=== PATIENT | male | born 1980 | race Caucasian/White ===

== ENCOUNTER 2020-02-22 09:50 | Emergency (ER) | payer OTHER, SELFPAY ==
[2020-02-22 09:52] VITALS: BP 122/78; PULSE 68; RESP 16; TEMP 36.6; O2SAT 99; BMI 25.8
--- NOTE | 2020-02-22 10:00 | RAD_ITS ---
STUDY: X-RAY - LEFT CALCANEUS REASON FOR EXAM: Male, 39 years old. Fell of one story roof, pain in foot. TECHNIQUE: 2 view(s) of the calcaneus were obtained. COMPARISON: None. FINDINGS: Acute, comminuted, multi fragmented, slightly impacted fracture of the calcaneus with soft tissue swelling. Joint spaces well-preserved. No other demonstrated fracture RAD/Calcaneus min 2 Views IMPRESSION: Acute, comminuted, multi fragmented, slightly impacted calcaneal fracture with soft tissue swelling Electronically Signed: Cooper Harris MD at 10:41 EDT , Service support ,
--- NOTE | 2020-02-22 10:00 | RAD_ITS ---
STUDY: X-RAY - LEFT HAND REASON FOR EXAM: Male, 39 years old. Fell of one story roof, pain in hand specifically third digit. TECHNIQUE: 3 view(s) of the hand. COMPARISON: None. FINDINGS: Normal radiocarpal articulation. Normal distal radioulnar joint. Normal visualized carpal bones. Normal carpal articulations Normal carpometacarpal articulation of the thumb. Normal second through fifth carpometacarpal joints. Normal metacarpi. Normal metacarpophalangeal joint of the thumb. Normal interphalangeal joint of the thumb. Normal proximal and distal phalanges of the thumb. Normal metacarpophalangeal joints of the second through fifth fingers. Normal proximal and distal interphalangeal joints of the second through fifth fingers. Normal phalanges of the second through fifth fingers. The soft tissue structures are unremarkable. RAD/Hand Min 3 Views IMPRESSION: Normal x-ray examination of the hand. Electronically Signed: Cooper Harris MD at 10:42 EDT , Service support ,
--- NOTE | 2020-02-22 10:00 | RAD_ITS ---
STUDY: X-RAY - RIGHT FOOT CLINICAL: Male, 39 years old. Fell of one story roof, pain in foot. TECHNIQUE: 3 view(s) of the foot. COMPARISON: None. FINDINGS: Normal talus and tarsal bones. Calcaneal spurs Normal visualized subtalar, talonavicular, calcaneocuboid, tarsal and tarsometatarsal articulations. Normal metatarsi. Normal metatarsophalangeal joint of the great toe. Normal tibial and fibular sesamoid bones. Normal interphalangeal joint of the great toe. Normal phalanges of the great toe. Normal second through fifth metatarsophalangeal joints. Normal interphalangeal joints and phalanges of the lesser toes. The soft tissue structures are unremarkable. RAD/Foot min 3 Views IMPRESSION: Calcaneal spurs, otherwise unremarkable right foot Electronically Signed: Cooper Harris MD at 10:42 EDT , Service support ,
--- NOTE | 2020-02-22 10:00 | RAD_ITS ---
STUDY: X-RAY - RIGHT ANKLE REASON FOR EXAM: Male, 39 years old. Fell of one story roof, pain in ankle. TECHNIQUE: 3 view(s) of the ankle. COMPARISON: None. FINDINGS: Normal visualized distal tibia and fibula. Normal medial and lateral malleoli. Normal tibiotalar articulation and ankle mortise. Normal visualized talus. Calcaneal spurs The visualized subtalar, talonavicular, calcaneocuboid and tarsal articulations are normal. The soft tissue structures are unremarkable. RAD/Ankle min 3 Views IMPRESSION: Calcaneal spurs, no demonstrated fracture or suspicious osseous lesion Electronically Signed: Cooper Harris MD at 10:38 EDT , Service support ,
--- NOTE | 2020-02-22 10:00 | RAD_ITS ---
STUDY: X-RAY - LEFT ANKLE REASON FOR EXAM: Male, 39 years old. Fell of one story roof, pain in ankle. TECHNIQUE: 3 view(s) of the ankle. COMPARISON: None. FINDINGS: Normal visualized distal tibia and fibula. Normal medial and lateral malleoli. Normal tibiotalar articulation and ankle mortise. Normal visualized talus. Calcaneal spurs The visualized subtalar, talonavicular, calcaneocuboid and tarsal articulations are normal. The soft tissue structures are unremarkable. RAD/Ankle min 3 Views IMPRESSION: Calcaneal spurs, otherwise unremarkable left ankle Electronically Signed: Cooper Harris MD at 10:38 EDT , Service support ,
--- NOTE | 2020-02-22 10:00 | RAD_ITS ---
STUDY: X-RAY - LEFT FOOT CLINICAL: Male, 39 years old. Fell of one story roof, pain in foot. TECHNIQUE: 3 view(s) of the foot. COMPARISON: None. FINDINGS: Normal talus and tarsal bones. Acute, comminuted, multi fragmented calcaneal fracture with soft tissue swelling Normal visualized subtalar, talonavicular, calcaneocuboid, tarsal and tarsometatarsal articulations. Normal metatarsi. Normal metatarsophalangeal joint of the great toe. Normal tibial and fibular sesamoid bones. Normal interphalangeal joint of the great toe. Normal phalanges of the great toe, there has been previous removal of the distal aspect of the distal phalanx of the great toe and of the middle and distal phalanges of the second toe. Normal second through fifth metatarsophalangeal joints. Normal interphalangeal joints and phalanges of the lesser toes. The soft tissue structures are unremarkable. RAD/Foot min 3 Views IMPRESSION: Acute comminuted multi fragmented slightly impacted calcaneal fracture with soft tissue swelling No other demonstrated fracture or joint space abnormality Electronically Signed: Cooper Harris MD at 10:40 EDT , Service support ,
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
[2020-02-22] MEDS: Ondansetron ODT 4 MG Tablet PO (10:06)
[2020-02-22] MEDS: HYDROcodone Bitartrate/Apap 5/325 Tablet PO (10:06)
--- NOTE | 2020-02-22 10:13 | ED.RN ---
PER ANA ESPINAL, LO[employer] ADVISER [employer] [facility], DOES NOT REQUIRE A DRUG TEST.
--- NOTE | 2020-02-22 10:42 | CT_ITS ---
STUDY: CT LEFT FOOT REASON FOR EXAM: Male, 39 years old. LT CALCANEAL FX/FALL FROM ROOF RADIATION DOSAGE (If Supplied By Facility): CTDIvol = ( 15.35 ) mGy, DLP = ( 319.22 ) mGycm TECHNIQUE: Thin section transaxial imaging of the foot was obtained, with sagittal and coronal reconstructed images. Individualized dose optimization techniques were used for this CT. COMPARISON: X-ray dated February 22, 2020. FINDINGS: Acute comminuted calcaneal fracture involving the anterior subtalar, posterior subtalar and calcaneocuboid joints. Fracture maximally depressed at the posterior subtalar joint measuring approximately 4 mm. No acute dislocation. No acute cortical destruction. Distal tibia intact. Distal fibula intact. Talus intact. Navicular intact. Cuboid intact. Cuneiforms intact. First through fifth metatarsals intact. Chronic truncated first distal phalanx. Chronic second toe amputation. Third through fifth digits intact. No significant osseous degenerative features. Hindfoot soft tissue swelling. Ankle joint effusion. CT/Extremity Lower without Contra IMPRESSION: Acute comminuted intra-articular left calcaneal fracture Chronic first and second digit surgery Hindfoot soft tissue swelling with ankle joint effusion Electronically Signed: Price Hyman DO at 11:38 EDT Tel , Service support ,
[2020-02-22 12:33] VITALS: BP 128/74; PULSE 71; RESP 16; O2SAT 99
== END 2020-02-22 12:40 | disposition home or self-care (01) ==
PROVIDERS: Emergency Provider Emergency Medicine
DX: S92.002A Unspecified fracture of left calcaneus, initial encounter for closed fracture (principal); S63.253A Unspecified dislocation of left middle finger, initial encounter; F17.200 Nicotine dependence, unspecified, uncomplicated; W13.2XXA Fall from, out of or through roof, initial encounter; Y93.89 Activity, other specified; Y92.89 Other specified places as the place of occurrence of the external cause; Y99.0 Civilian activity done for income or pay
CPT/HCPCS: 29515; 73130; 73610; 73630; 73650; 73700; 99285

== ENCOUNTER 2020-02-29 09:28 | Day surgery (SDC) | payer OTHER, SELFPAY ==
--- NOTE | 2020-02-26 16:13 | EKG12_ITS ---
Test Reason : PREOP Blood Pressure : / mmHG Vent. Rate : 070 BPM Atrial Rate : 070 BPM P-R Int : 126 ms QRS Dur : 078 ms QT Int : 372 ms P-R-T Axes : 046 016 015 degrees QTc Int : 401 ms Normal sinus rhythm Normal ECG Confirmed by YODIT GIPSON ([id number]), subeditor NILTON SMILEY ([id number]) on 03/04/2020 2:40:51 PM Referred By: Ulises Carbone Confirmed By:YODIT GIPSON
[2020-02-26 17:13] LABS: Absolute Lymphocyte Count 2.27 X10^3/uL (0.83-4.51); Basophil# 0.03 X10^3/uL; Basophil% 0.3 % (0-1); Eosinophil# 0.07 X10^3/uL; Eosinophils% 0.8 % (0-5); Hematocrit 43.2 % (40-54); Hemoglobin 14.3 g/dL (13.0-16.5); Lymphocyte # 2.27 X10^3/ul (4.0); Lymphocyte % 25.1 % (19-41); Mean Corp Hgb Conc 33.1 g/dL (32-36); Mean Corpuscular Hgb 28.5 pg (27.0-32.0); Mean Corpuscular Volume 86.1 fL (80-94); Mean Platelet Vol. 10.3 fl (6.2-12.0); Monocyte# 0.66 X10^3/uL; Monocyte% 7.3 % (0-10); NRBC Flagged by Analyzer 0 % (0-5); Neutrophil # 6.01 X10^3/uL (2.7-7.7); Neutrophil % 66.3 % (47-70); Platelet Count 268 K/mm3 (150-450); RBC Distribution Width SD 37.4 fl (35.1-43.9); Red Blood Count 5.02 M/mm3 (4.6-6.2); White Blood Count 9.1 K/mm3 (4.4-11.0)
[2020-02-26 17:35] LABS: ALB/GLOB Ratio 0.9 RATIO (0.9-2.4); AST(SGOT) 14 U/L (15-37); Alanine Aminotransfer ALT/SGPT 30 U/L (16-61); Albumin, Serum 3.9 g/dL (3.2-5.0); Alkaline Phosphatase 68 U/L (45-117); Anion Gap 3 (5-15); BUN 17 mg/dL (7-18); BUN/Creat Ratio 17.8 RATIO (10-20); Chloride 103 mmol/L (98-107); Creatinine, Serum 0.96 mg/dL (0.70-1.30); EST Glomerular Filtration Rate 94 mL/min (>60); Est Glom Filt Rate - Afr Amer 114 mL/min (>60); Globulin 4.3 g/dL (2.2-4.2); Glucose 88 mg/dL (74-106); Potassium 3.8 mmol/L (3.5-5.1); Protein, Total 8.2 g/dL (6.4-8.2); Sodium Level 137 mmol/L (136-145)
[2020-02-29] VITALS (7 sets, daily range): BP systolic 121–147; BP diastolic 63–91; PULSE 61–90; RESP 16–18; TEMP 36.2–36.8; O2SAT 96–99; BMI 24.5
--- NOTE | 2020-02-29 07:00 | RAD_ITS ---
STUDY: X-RAY - LEFT CALCANEUS REASON FOR EXAM: Male, 39 years old. ORIF CALCANEAL FRACTURE WITH SUBTALAR JOINT ARTHRODESIS FUSION TECHNIQUE: 5 intraoperative view(s) of the calcaneus were obtained. 4 minutes 40 seconds fluoroscopy time. COMPARISON: 02-22-20. FINDINGS: 2 surgical screws are seen passing along the length of the posterior calcaneus and into the abdominal talus. Calcaneal contour appears normal. Correlate with procedure note. Electronically Signed: Jesse Chua MD at 18:53 EDT , Service support , RAD/Calcaneus min 2 Views
[2020-02-29] MEDS: Lactated Ringers 1,000 ML 100 ML IV (10:15)
[2020-02-29] MEDS: Cefazolin 2 GM in 0.9% Normal Saline 100 ML IV (11:09)
--- NOTE | 2020-02-29 13:48 | PCM.DC.POD ---
Discharge Diet: Light diet - advance as tolerated Discharge Activity: May not drive while taking narcotic pain medications., Use Crutches Weight Bearing Status: No weight bearing - No weightbearing left foot Keep extremity elevated above heart level: Left Leg - Keep left foot elevated (w/ pressure off of heel) at least 50 minutes of every hour Call your doctor if your incision/area has: Continuous Slow Oozing, Sudden Increased Bleeding, Foul Smelling Discharge Call your doctor if you observe: Fever of 101 or Higher, Shortness of breath, Chest pain, Calf discomfort, Uncontrolled pain Cleanse incision/area with: Do not get Incision Wet, Keep Dressing Clean & Dry Allergies/Adverse Reactions: Allergies No Known Allergies Allergy (Verified 02/29/20 10:01) Medications to take at Discharge Hydrocodone/Acetaminophen [[place] 5-325 Tablet] 1 ea PO Q6H PRN 02/25/20 Amoxicillin/Potassium Clav [Augmentin 500-125 Tablet] 1 ea PO Q12H #14 tab 02/29/20 Rivaroxaban [Xarelto] 10 mg PO DAILY #10 tab 02/29/20 The following prescriptions were given: Amoxicillin/Potassium Clav [Augmentin 500-125 Tablet] 1 ea PO Q12H #14 tab Prescription Printed Rivaroxaban [Xarelto] 10 mg PO DAILY #10 tab Prescription Printed Orders to be completed after discharge: CORONAVIRUS 19, CATHLEEN SCREEN Time Frame: 02/26/20, Facility: [facility], Location: Laboratory Primary Care Physician: Care Physician,No Primary [Primary Care Provider] - Test Results: Test results from this visit will be discussed in further detail at your follow-up appointment, if applicable. Please Follow Up With: Ulises Carbone DPM When: 1 week, sooner if needed
--- NOTE | 2020-02-29 13:51 | OP.PCM_ITS ---
Report of Operation Date of Procedure: 02/29/20 Pre-Operative Diagnosis: Calcaneal fracture, left Post-Operative Diagnosis: Same Surgery/Procedure Performed:: Primary subtalar joint arthrodesis, left butter liquefier: yes - Dr. Becki Forde Type of Anesthesia:: General Specimen's removed: None Estimated Blood Loss (mL): 20mL Description of Procedure: Indications: This is a 39 year old gentleman with left calcaneal fracture 1 week ago, fracture is significantly comminuted and intra-articular. We discussed the options and he would like to proceed with primary arthrodesis of the subtalar joint. This was discussed with him in great detail, we have discussed the possible benefits vs risks and potential complications. We have discussed and reviewed all alternative options. We reviewed and discussed the typical healing time and post operative course. All goals and expectations were discussed and reviewed. He expressed understanding and agreement, he was able to repeat these back. All of his questions were answered. The consent forms were reviewed with him and he freely signed them. No guarantees were given nor implied. Also advised tobacco cessation, advised increased risks of nonhealing, infection and other problems with continued tobacco use. Operative Procedure: The patient was brought back into the operating room and was placed on the operating table in the supine position. Patient was carefully secured to the operating room table with a safety belt around patient's waist. A time out was performed and the patient was properly identified and the surgical plan was confirmed. The patient received 2g of intravenous Cefazolin for antibiotic prophylaxis. The patient received general anesthesia per the anesthesiologist. A well padded pneumatic tourniquet was applied around the left thigh. The left lower extremity was scrubbed, prepped, and draped using strict aseptic technique. Attention was further directed to the left foot and ankle. Attention was directed to the lateral column were an incision was made overlying the sinus tarsi, from the distal fibula directed toward the 4th metatarsal base. This was done using a 15 blade. Careful blunt dissection was completed down the extensor digitorum brevis muscle belly, which was visualized and was partially reflected superiorly, the lateral capsule and the interosseous ligaments of the subtalar joint were released. The left foot was elevated for 3 minutes and the left thigh pneumatic tourniquet was inflated to 300mmHg. The sinus tarsi and subtalar joint (posterior, medial and anterior subtalar joint) were visualized. The calcaneal fracture was noted, there was multiple fragments and was intra articular. The cartilages was fractured in multiple places. The subtalar joint was debrided, and all remaining cartilage from the subtalar joint surfaces was removed down to bleeding bone. This was done with a curette and a small bur being sure not to cause osteonecrosis. The site was flushed out with copious amounts of normal saline solution. The joint surfaces were fenestrated to aid fusion using an osteotome as well as a small drill. The heel and subtalar joint were placed in neutral position / vertical position and two 7.0 cannulated Arthrex screws were placed across the prepped subtalar joint, this was done using rigid open reduction internal fixation technique. A small amount of cancellous bone chips were placed at the fusion site to help maintain height and to aid fusion. There was noted to be good bone to bone compression and contact across the subtalar joint with the prepped subtalar joint surfaces in good alignment. The subtalar joint was rigid and stable. The screws were in good position. This was confirmed with intra-operative fluoroscopy. The surgical site was flushed out with copious amounts of normal saline solution. The deep fascia layer using 2-0 Vicryl, the subcutaneous tissue layers was reapproximated 4-0 Vicryl, and the skin was reapp roximated using 3-0 Nylon. The pneumatic tourniquet was deflated, and there was immediate return of warmth and perfusion to the foot and to all toes on the foot with normal temperature gradient and CFT < 2 seconds to all toes. Total tourniquet was was 117 minutes. 19mL of 0.5% Bupivacaine was given as a local block around the surgical site for further post op pain control. Hemostasis was achieved. A dressing was applied which consisted of Betadine soaked adaptic, 4x4 gauze, Kerlix and trenton bandage, and a well padded below knee posterior splint with heel offloaded. The patient tolerated the above operative procedure well at the anesthesia well with no complication. The patient was transported to the recovery room with vital signs stable and in good condition. Patient received a left popliteal block in recovery by the anesthesia team. Post operative orders were placed. Post operative instructions were reviewed. No weightbearing to the left foot, keep foot elevated for at least 50 minutes of every hour, keep dressing clean, dry and intact. Prescription for Xarelto 10mg once a day for DVT prophylaxis, and also Augmentin 500mg PO q 12 hours for antibiotic prophylaxis. Patient already has [place] for pain control at home. Post operative xrays left calcaneus were obtained and reviewed - confirmed subtalar joint arthrodesis with screws intact and in good position. No acute findings otherwise. Patient to follow up with me in 1 week at office, sooner if needed. Grafts/Implants Used: 2 x 7.0mm Arthrex cannulated screws - Complications None
--- NOTE | 2020-02-29 14:03 | RAD_ITS ---
STUDY: X-RAY - LEFT CALCANEUS REASON FOR EXAM: Male, 39 years old. POST OP PORTABLE LEFT HEEL. TECHNIQUE: 3 view(s) of the calcaneus were obtained. COMPARISON: Intraoperative views of the same day. FINDINGS: Cast obscures bone detail. 2. Screws are seen passing through the posterior calcaneus, the posterior talocalcaneal joint, and into the talus. Fractures in near anatomic alignment and position. BOHLER''s angle is maintained. RAD/Calcaneus min 2 Views IMPRESSION: Status post surgical ankylosis through the calcaneus and into the talus. Fractures in near anatomic alignment and position. Electronically Signed: Jesse Chua MD at 19:07 EDT , Service support ,
[2020-02-29 15:53] LABS: International Normalized Ratio 1.1; Prothrombin Time (Protime)PT. 14.1 SECONDS (11.7-14.9)
[2020-02-29 15:54] LABS: Partial Thromboplast Time 27.1 Seconds (24.1-36.2)
--- NOTE | 2020-02-29 16:22 | SUR.PHASEII ---
pt and female sig other instructed verbally and in writing to watch for signs and symptoms of blood clot. Jose information given entitled Understanding Pulmonary Embolism which includes the s/s to watch for.
== END 2020-02-29 15:27 | disposition home or self-care (01) ==
LOC: SDC 09:31 → AC 09:31
PROVIDERS: Anesthesiology; Referring Provider Podiatrist; Visit Provider Podiatrist
PROC: (CPT 28725; principal; 2020-02-29 10:40)
DX: S92.062A Displaced intraarticular fracture of left calcaneus, initial encounter for closed fracture (principal); F17.200 Nicotine dependence, unspecified, uncomplicated; Z11.59 Encounter for screening for other viral diseases; X58.XXXA Exposure to other specified factors, initial encounter; Y93.89 Activity, other specified; Y92.89 Other specified places as the place of occurrence of the external cause; Y99.8 Other external cause status
CPT/HCPCS: 28725; 36415; 73650; 76000; 80053; 85025; 85610; 85730; 87635; 93005; 94799; C1713; J7120; J2405; U0003

== ENCOUNTER 2020-08-15 14:30 | Outpatient (RCR) | payer OTHER, SELFPAY ==
[2020-02-29 10:02] VITALS: BMI 24.5
--- NOTE | 2020-05-16 17:26 | HP.PTEVAL_ITS ---
Patient's Visit Information OFELIA KELLER is a 40 year old M referred to Physical Therapy by Dr. Ulises Carbone DPM with a diagnosis of Subtalar Arthrodesis due to severe calcaneal fracture. Date of Evaluation: 05/16/20 Physical Therapist: Verna Worthy DPT - Visit Plan Frequency: 3x /Week Duration: 4 Weeks Plan: Boot until at least 05/25/2020 per MD. Focus on LE ROM,strength and flexibility - Subjective Fell off the roof February 21 fractured calcaneus- surgery 02/29/[address] Carbone. Was on crutches- and a splint when he was outside of his house- non weight bearing. Was put in a boot and full weight on it for about 2 weeks. Go es back to [place] in about 2 weeks. Does not really have pain in the ankle/foot when resting. But when he walks he has lateral ankle pain when he walks and if it gets bad its in the back and lower foot. Takes about a half hour for the pain to go back to zero. Does not sleep in the boot- does not put any weight on it unless he has the boot on. Best: 0/10 Eases: getting off of it agg: being up on it, weight bearing in the boot. Worst: 2/10 Describes the pain as stabbing- no N/T at this time. 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 PMHx: none- is missing his second toe and a piece of his 1st toe Meds: cream by Dr. Carbone for athletes foot. Sleep: not disturbed. Very active prior to the injury- plays baksetball with his kids and his job is demanding. - Objective Posture: Fh, RS. Gait: antalgic- Cam walker on the left LE- no WB outside of boot- decreased stance and poor wesley/toe pattern. Observation: incision healing well no s/s of infection. ROM: DF: neutral, PF: 30 degrees, Inver: 10 degrees Ever: 10 degrees, Knee/Hip: WNl. Strength: Ankle: 4+/5 in available range, knee: 5/5 Hip: 4/5 Core: fair. Flex: HS: moderate Gastroc; severe. Palpatoin: tender along plantar surface of the foot along the calcaneus and on the lateral aspect of the foot to the metatarsals- medial and lateral malleolus. No WB obje ctive measures - Goals Goal 1:: Patient will be I with HEP and progression Goal Time Frame: 4-6 Weeks Goal 2:: Patinet will ambulate >300 feet with a normalized gait pattern Goal Time Frame: 4-6 Weeks Goal 3:: Patient will SLS for 30 sec without LOB Goal Time Frame: 4-6 Weeks Goal 4:: Patient will return to work related tasks without pain for 1 week - Rehabilitation Potential Physical Therapy Diagnosis: Patient presents with hypomobility- he has decreased ROM,strength, flex and muscular endurance s/p subtalar arthrodesis leading to abnormal gait Rehabilitation Potential: Good - Anticipated Interventions Patient/Client Instruction: Educate patient on: Benefits of Fitness Program Therapeutic Exercise to Include: Strength training, Endurance training, Balance training, Coordination, Agility training, Body mechanics, Postural training, Flexibilty training, Gait and locomotor training, Neuromotor development, Passive ROM, Active ROM, Dynamic Lumbar Stabilization, Scapular Strength/Stabilization For the Purpose of:: To improve muscle performance and motor function TENS: Yes Cryotherapy (ice pack, ice massage): Yes Thermo therapy (hot pack): Yes Ultrasound (thermal/non thermal): No Vasopneumatic device: Yes For the Purpose of:: To decrease pain, To decrease swelling/inflammation Thank you for the opportunity to evaluate your patient. For Medicare and Medicare HMO plans, please review the plan of care and approve it. It will need to be FAXED BACK to us at [phone] for Medicare purposes. For Medicare only, by signing this I certify the plan of care. Please let me know if there are questions or concerns regarding this plan of care. Physician Signature: Date:
--- NOTE | 2020-06-13 10:19 | HP.PTREVAL_ITS ---
Dr. Ulises Carbone, DPM, It has been my pleasure to treat OFELIA KELLER over the last 6 visits for Subtalar Arthrodesis due to severe calcaneal fracture. Please see the progress note below for an update on the physical therapy plan of care! Subjective: He is no longer wear the boot or sock- he wears his orthotics. He is not back to work- he does not have a return to work date. Goes back to [employer] Jun 28. The pain comes and goes. Some days are better than others. He still has problems with the ankle area and the heel is tender. Wears crocks in the s hower which is helpful. He is working on standing on both feet without shoes yesterday for the first time. Most painful part is currently where the scars (Worst: 2/10 Best: 0/10). No night splint. Objective/Function: Posture: Fh, RS. Gait: slightl antalgic- tennis shoe without compression stocking- decreased stance and poor wesley/toe pattern on the left. Observation: incision healing well no s/s of infection and not tender to light touch. Significant muscle atrophy in the right calf. ROM: DF: 5 degrees, PF: 60 degrees, Inver: 10 degrees Ever: 20 degrees, Knee/Hip: WNL. Strength: Ankle: 4+/5 in available range, knee: 5/5 Hip: 4/5 Core: fair. Flex: HS: moderate Gastroc; severe. Palpatoin: tender along plantar surface of the foot along the calcaneus and on the lateral aspect of the foot to the metatarsals Girth: Figure 8: 54 cm. HR/TR: able with UE a for balance, SLS: 5 sec then LOB Plan Plan: Boot until at least 05/25/2020 per MD. Focus on LE ROM,strength and flexibility. 06/13: Continue with POC as per C9- when MD sends- focus on proprioception and functional mobility Goals Goal 1:: Patient will be I with HEP and progression Goal Time Frame: 4-6 Weeks Goal Progress: Progressing Goal 2:: Patinet will ambulate >300 feet with a normalized gait pattern Goal Time Frame: 4-6 Weeks Goal Progress: Progressing Goal 3:: Patient will SLS for 30 sec without LOB Goal Time Frame: 4-6 Weeks Goal Progress: Progressing Goal 4:: Patient will return to work related tasks without pain for 1 week Goal Progress: Progressing Anticipated Interventions Patient/Client Instruction: Educate patient on: Benefits of Fitness Program Therapeutic Exercise to Include: Strength training, Endurance training, Balance training, Coordination, Agility training, Body mechanics, Postural training, Flexibilty training, Gait and locomotor training, Neuromotor development, Passive ROM, Active ROM, Dynamic Lumbar Stabilization, Scapular Strength/Stabilization For the Purpose of:: To improve muscle performance and motor function TENS: Yes Cryotherapy (ice pack, ice massage): Yes Thermo therapy (hot pack): Yes Ultrasound (thermal/non thermal): No Vasopneumatic device: Yes For the Purpose of:: To decrease pain, To decrease swelling/inflammation Please do not hesitate to contact me at [phone] by phone or if you have questions or concerns regarding this new plan of care! Sincerely, Verna Worthy DPT
--- NOTE | 2020-08-15 15:06 | HP.PTREVAL ---
Dr. Ulises Carbone, DPM, It has been my pleasure to treat OFELIA KELLER over the last 14 visits for Subtalar Arthrodesis due to severe calcaneal fracture. Please see the progress note below for an update on the physical therapy plan of care! 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 He feels that its better- he still has a little limp- but he has very little pain. No pain with manuel- but his motion is not 100% back to normal on the roof. Can't walk all the way up the slant due to decreased DF or across inversion. Doesn't feel he needs PT anymore. Patient feels that he is 85% of previous function. Objective/Function: Posture: Fh, RS. Gait: slightly antalgic- tennis shoe- decreased stance and poor wesley/toe pattern on the left. Observation: incision healing well no s/s of infection and not tender to light touch. Significant muscle atrophy in the right calf. ROM: DF: 10 degrees, PF: 50 degrees, Inver: 10 degrees Ever: 30 degrees, Knee/Hip: WNL. Strength: Ankle: 5/5 in available range, knee: 5/5 Hip: 4/5 Core: fair. Flex: HS: moderate Gastroc; moderate. HR/TR: able with UE a for balance bilateral LE- single leg unable to perform HR or eccentrics, SLS: 7 sec then LOB. Plan Plan: Focus on LE ROM, strength and flexibility. 06/13: Continue with POC as per C9- focus on proprioception and functional mobility. 07/20: Continue with POC as per C9- expires 08/16/2019. 08/15/2020: Continue with current POC if patient aquires new C9 from MD 08/24/2020. Encouraged patient to focus on HEP of SLS and HR/TR both concentric and eccentric and to be cautious on the roof. Goals Goal 1:: Patient will be I with HEP and progression Goal Time Frame: 4-6 Weeks Goal Progress: Progressing Goal 2:: Patinet will ambulate >300 feet with a normalized gait pattern Goal Time Frame: 4-6 Weeks Goal Progress: Progressing Goal 3:: Patient will SLS for 30 sec without LOB Goal Time Frame: 4-6 Weeks Goal Progress: Progressing Goal 4:: Patient will return to work related tasks without pain for 1 week Goal Progress: Progressing Anticipated Interventions Patient/Client Instruction: Educate patient on: Benefits of Fitness Program Therapeutic Exercise to Include: Strength training, Endurance training, Balance training, Coordination, Agility training, Body mechanics, Postural training, Flexibilty training, Gait and locomotor training, Neuromotor development, Passive ROM, Active ROM, Dynamic Lumbar Stabilization, Scapular Strength/Stabilization For the Purpose of:: To improve muscle performance and motor function TENS: Yes Cryotherapy (ice pack, ice massage): Yes Thermo therapy (hot pack): Yes Ultrasound (thermal/non thermal): No Vasopneumatic device: Yes For the Purpose of:: To decrease pain, To decrease swelling/inflammation Please do not hesitate to contact me at [phone] by phone or if you have questions or concerns regarding this new plan of care! Sincerely, Verna Worthy DPT
--- NOTE | 2020-09-07 13:17 | HP.PTDCSUM ---
It has been my pleasure to treat OFELIA KELLER referred by Dr. Ulises Carbone, DPYeimi, with the diagnosis of Subtalar Arthrodesis due to severe calcaneal fracture for a total of 14 visit(s). Discharge Date: Please see the following information for a summary of their discharge status. 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 He feels that its better- he still has a little limp- but he has very little pain. No pain with manuel- but his motion is not 100% back to normal on the roof. Can't walk all the way up the slant due to decreased DF or across inversion. Doesn't feel he needs PT anymore. Patient feels that he is 85% of previous function. Left Ankle Pain Intensity (Out of 10): 4 % Improvement: 85 Objective/Function: Posture: Fh, RS. Gait: slightly antalgic- tennis shoe- decreased stance and poor wesley/toe pattern on the left. Observation: incision healing well no s/s of infection and not tender to light touch. Significant muscle atrophy in the right calf. ROM: DF: 10 degrees, PF: 50 degrees, Inver: 10 degrees Ever: 30 degrees, Knee/Hip: WNL. Strength: Ankle: 5/5 in available range, knee: 5/5 Hip: 4/5 Core: fair. Flex: HS: moderate Gastroc; moderate. HR/TR: able with UE a for balance bilateral LE- single leg unable to perform HR or eccentrics, SLS: 7 sec then LOB. Goal 1:: Patient will be I with HEP and progression Goal Progress: Progressing Goal 2:: Laceynet will ambulate >300 feet with a normalized gait pattern Goal Progress: Progressing Goal 3:: Patient will SLS for 30 sec without LOB Goal Progress: Progressing Goal 4:: Patient will return to work related tasks without pain for 1 week Goal Progress: Progressing Plan: Focus on LE ROM, strength and flexibility. 06/13: Continue with POC as per C9- focus on proprioception and functional mobility. 07/20: Continue with POC as per C9- expires 08/16/2019. 08/15/2020: Continue with current POC if patient aquires new C9 from [place] 08/24/2020. Encouraged patient to focus on HEP of SLS and HR/TR both concentric and eccentric and to be cautious on the roof. If there are questions or concerns regarding this patient's physical therapy, please feel free to call me at [phone]. Thank you for the referral of this patient. Sincerely, MONTY MeadowsT
== END 2020-08-15 19:00 | disposition home or self-care (01) ==
LOC: PT 14:30
PROVIDERS: Referring Provider Podiatrist; Visit Provider Podiatrist
DX: Z47.89 Encounter for other orthopedic aftercare (principal)
CPT/HCPCS: 97110; 97162; 97164

== ENCOUNTER 2024-06-10 07:28 | Emergency (ER) | payer SELFPAY ==
[2024-06-10 07:28] VITALS: BP 128/79; PULSE 79; RESP 16; TEMP 36.6; O2SAT 100; BMI 27.1
== END 2024-06-10 09:36 | disposition home or self-care (01) ==
PROVIDERS: Emergency Provider Emergency Medicine; Visit Provider Emergency Medicine
DX: M25.521 Pain in right elbow (principal); F17.210 Nicotine dependence, cigarettes, uncomplicated
CPT/HCPCS: 73080; 99282

== ENCOUNTER 2025-07-15 13:00 | Outpatient (RCR) | payer OTHER, SELFPAY ==
--- NOTE | 2025-06-16 13:36 | HP.PTEVAL_ITS ---
Patient's Visit Information Visit Information Visit Information: OFELIA KELLER is a 45 year old M referred to Physical Therapy by MIGUEL ANGEL HESS with a diagnosis of SPRAIN OF R SHLD - DOI 05/17/25. Date of Evaluation: 06/16/25 Physical Therapist: Kary Cherry PT, Cert MDT Visit Plan Frequency: 3x /Week Duration: 4 Weeks Plan: R SHLD MANUAL THERAPY INCLUDING JOINT MOBILIZATION AND PROM TO HELP DECREASE PAIN AND RESTORE ROM. R SHLD MODALITIES NEEDED TO DECREASE PAIN AND SWELLING AND HELP PROMOTE HEALING. A/AA/PROM R SHLD ALL PLANES TO HELP RESTORE ROM. POSTURE CORRECTON TO PROMOTE GOOD ALIGNMENT DURING HEALING. ONCE ROM IS RESTORED BEGIN LIGHT RESISTANCE TRAINING TO RESTORE FULL STRENGTH OF ROTATOR CUFF. PROPRIOCEPTIVE RE-TRAINING. 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 STATES HE IS USING R ARM SOME AT WORK. THIS PATIENT PRESENTS TO PT WITH C/O R SHLD PAIN. STATES HE WAS PICKING UP A COMPRESSOR OUT OF A TRUCK AT WORK WITH ANOTHER DEBBIE 05/17/25 AND FELT PAIN/PRESSURE/STABBING IN HIS R SHLD. PATIENT REPORTS HE HAD AN MRI AT [facility] AND WAS TOLD THAT HE HAS A TEAR AND HAS BEEN REFERRED TO DR. DEREK YANES WAS CONSULT PENDING 07/05/25. Present symptoms: R SHLD PAIN AND FEELS "HEAVY". DENIES UE NUMBNESS AND TINGLING. Getting Better, Getting Worse or Staying the Same: GETTING BETTER WITH REST FROM WORK Pain Scale: Worst - 6/10 Least - 0/10 Currently: 0/10 Worse: REACHING ACROSS BODY, BRINGING ARM UP WITH ELBOW BENT. 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 LAYING ON IT. Better: REST ARM ON LEG OR ARM REST, NOT REACHING. ANTI-INFLAMMATORY PRESCRIPTION. Disturbed sleep: YES Previous history/Previous treatment: UNREMARKABLE This episode: ANTI-INFLAMMATORY PRESCRIPTION FROM URGENT CARE. Dizziness: NO Tinnitus: NO Nausea: NO Shortness of Breath: NO Difficulty Swallowing: NO PMH/Recent major surgery: UNREMARKABLE Objective Objective: Sitting Posture/Standing Posture: FAIR. FH. ROUNDED SHLD'S. Active Correction of posture: PATIENT ABLE TO CORRECT BUT DOES NOT MAINTAIN. Other Observations: INDEP GAIT AND TRANSFERS. Sensory deficit: KEMAR UE LIGHT TOUCH SENSATION GROSSLY INTACT AND SYMMETRICAL ROM deficit: STANDING AROM: R SHLD FLEX 126 DEG. ABD 136 DEG. SUPINE PROM R SHLD FLEX 139 DEG, ABD 60 DEG, ER 43 DEG, IR 65 (ROTATION MEASURED WITH 60 DEG ABD). FULL ACTIVE ROM R ELBOW, FOREARM, WRIST AND HAND. ERP AND GUARDING WITH PROM TESTING R SHLD ALL PLANES ESPECIALLY SUPINE ABD. 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 L UE 5/5 WITH L HAT BRIM AND CROWN LAMINATING OPERATOR STRENGTH 60 LBS. Cervical Mvmt Loss: CERVICAL ROM WITHIN WFL ALL PLANES AND PATIENT DENIES INCREASED R SHLD PAIN WITH CERVICAL ROM TESTING. Postural strength: FAIR Balance/Special Test Scores Quick DASH Score: 35.0000 Goals Goal 1:: RESTORE FULL PAINFREE R UE ROM EQUAL TO L UE. Goal Time Frame: 4-6 Weeks Goal 2:: INCREASE R UE STRENGTH BY AT LEAST ONE MUSCLE GRADE THROUGHOUT Goal Time Frame: 4-6 Weeks Goal 3:: PATIENT WILL SCORE AT LEAST 10 POINTS BETTER ON QUICK DASH QUESTIONAIRE Goal Time Frame: 4-6 Weeks Goal 4:: INDEP HEP Goal Time Frame: 4-6 Weeks Rehabilitation Potential Physical Therapy Diagnosis: R SHLD PAIN, WEAKNESS AND STIFFNESS S/P REPORTS OF HEAVY LIFTING AT WORK 05/17/25 Rehabilitation Potential: Fair Anticipated Interventions Patient/Client Instruction: Educate patient on: Condition, Plan of Care and Risk Factors For the Purpose of:: To improve self management Therapeutic Exercise to Include: Strength training, Postural training, Flexibilty training, Neuromotor development, Passive ROM, Active ROM and Scapular Strength/Stabilization For the Purpose of:: To decrease pain, To improve nutrient delivery to tissue, To increase oxygenation perfusion, To improve muscle performance and motor function, To improve ability to perform ADL's, To increase tolerance to activity/condition/position, To improve ability of physical actions for home/community/work/leisure, To increase flexibility/ROM, To reduce risk of recurrence and To improve self management Manual Therapy Techniques to Include: Mobilization and Passive ROM For the Purpose of:: To decrease pain, To increase ROM and To improve nutrient delivery to tissue TENS: Yes IF ES: Yes Cryotherapy (ice pack, ice massage): Yes Thermo therapy (hot pack): Yes Ultrasound (thermal/non thermal): Yes For the Purpose of:: To decrease pain, To decrease swelling/inflammation and To improve nutrient delivery to tissue Text: Thank you for the opportunity to evaluate your patient. For Medicare and Medicare HMO plans, please review the plan of care and approve it. It will need to be FAXED BACK to us at [phone] for Medicare purposes. For Medicare only, by signing this I certify the plan of care. Please let me know if there are questions or concerns regarding this plan of care. Physician Signature: Date:
--- NOTE | 2025-07-15 15:39 | HP.PTDCSUM_ITS ---
Discharge Summary D/C summary: It has been my pleasure to treat OFELIA KELLER referred by MIGUEL ANGEL HESS, with the diagnosis of SPRAIN OF R SHLD - DOI 05/17/25 for a total of 11 visit(s). Discharge Date: 07/15/25 Please see the following information for a summary of their discharge status. Subjective Subjective: PATIENT REPORTS ABOUT 40% IMPROVEMENT SINCE STARTING PT BUT HE HASN'T BEEN DOING HIS USUAL WORK. HE STATES HIS PAIN COMES AND GOES NOW. HE REPORTS HE GETS PAIN IF HE LAYS ON IT A CERTAIN WAY, IF HE REACHES ACROSS HIS BODY, IF HE REACHES BEHIND HIM, PULLING IN, PULLING OUT AND IF HE TIES TO LIFT SOMTHING MORE THAN 2 LBS ABOVE 90 DEG. HE REPORTS THE ORTHO DOCTOR RECOMMENDED SURGERY AND HE AGREED. HE STATES HE IS WAITING FOR ALL THE PAPERWORK TO BE PROCESSED. Pain R SHLD: Pain Intensity (Out of 10): 3 Overall Improvement % Improvement: 40 Objective Objective/Function: PATIENT WAS SEEN TODAY FOR RE-ASSESSMENT OF PROGRESS TOWARD THE SET PT GOALS AND THE NEED FOR FURTHER PHYSICAL THERAPY VS READINESS FOR DISCHARGE. UPON EXAM TODAY: ROM deficit: STANDING AROM: R SHLD FLEX 145 DEG. ABD FULL SUPINE PROM R SHLD FLEX 150 DEG, ER 67 DEG, IR 65 (ROTATION MEASURED WITH 90 DEG ABD). FULL ACTIVE ROM R ELBOW, FOREARM, WRIST AND HAND. ERP AND GUARDING WITH PROM TESTING R SHLD FLEX, IR AND ER. 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 L UE 5/5 WITH L GEOSPATIAL DEVELOPER STRENGTH 78 LBS. Goals Goal 1:: RESTORE FULL PAINFREE R UE ROM EQUAL TO L UE. Goal Progress: NOT MET Goal 2:: INCREASE R UE STRENGTH BY AT LEAST ONE MUSCLE GRADE THROUGHOUT Goal Progress: NOT MET Goal 3:: PATIENT WILL SCORE AT LEAST 10 POINTS BETTER ON QUICK DASH QUESTIONAIRE Goal Progress: NOT MET Goal 4:: INDEP HEP Goal Progress: MET Plan Plan: D/C TO HEP D/C Information d/c sentence: If there are questions or concerns regarding this patient's physical therapy, please feel free to call me at [phone]. Thank you for the referral of this patient. Sincerely, Kary Cherry, PT, Cert MDT Balance/Gait/Functional tests Balance/Special Test Scores Quick DASH Score: 40.9075 Improvement % Improvement: 40
== END 2025-07-15 19:00 | disposition home or self-care (01) ==
LOC: PT 13:00
DX: S43.401D Unspecified sprain of right shoulder joint, subsequent encounter (principal)
CPT/HCPCS: 97110; 97140; 97161; 97530